=== PATIENT | female | born 1970 | race Caucasian/White ===

== ENCOUNTER 2020-05-02 07:54 | Day surgery (SDC) | payer OTHER ==
[2020-04-29 09:10] LABS: BASOPHILS # (AUTO) 0.02 x10^3/uL (0-0.1); BASOPHILS % (AUTO) 0 % (0-1); EOSINOPHILS # (AUTO) 0.25 x10^3/uL (0-0.4); EOSINOPHILS % (AUTO) 4 % (1-7); LYMPHOCYTES # (AUTO) 1.13 x10^3/uL (1-3.4); LYMPHOCYTES % (AUTO) 16 % (22-44); MD NO; MEAN CORPUSCULAR HEMOGLOBIN 24.9 pg (27.0-34.8); MONOCYTES # (AUTO) 0.56 x10^3/uL (0.2-0.8); MONOCYTES % (AUTO) 8 % (2-9); NEUTROPHILS # (AUTO) 4.99 x10^3/uL (1.8-6.8); NEUTROPHILS % (AUTO) 72 % (42-75); PLATELET COUNT 273 x10^3/uL (130-400); RED BLOOD COUNT 3.67 x10^6/uL (3.82-5.3); RED CELL DISTRIBUTION WIDTH 15.2 % (9.6-15.2)
[2020-04-29 09:18] LABS: ALANINE AMINOTRANSFERASE 18 U/L (12-78); ALBUMIN 3.4 g/dL (3.4-5.0); ANION GAP 6 mmol/L (5-15); CALCIUM 8.5 mg/dL (8.5-10.1); CHLORIDE 109 mmol/L (98-107); CREATININE 0.88 mg/dL (0.55-1.02)
[2020-04-29 09:22] LABS: ALKALINE PHOSPHATASE 62 U/L (45-117); BILIRUBIN,TOTAL 0.2 mg/dL (0.2-1.0); TOTAL PROTEIN 7.6 g/dL (6.4-8.2)
[2020-04-29 09:56] LABS: MICROSCOPIC NOT IND
[~2020-05-02] VITALS: Ht 167.6 cm; Wt 111.8 kg
[~2020-05-02 07:54] MED LIST: CHOL10003 PO; MULT-124 PO; [UNRECOGNIZED DRUG - OTHER] PO
[2020-05-02] MEDS ORDERED: MANNITOL PMX 20% 500 ML ONE (07:55)
[2020-05-02] MEDS ORDERED: EPINEPHRINE 1 MG/ML, 1ML ONE (07:55)
[2020-05-02] MEDS ORDERED: INDIGO CARMINE 0.8%, 5ML ONE (07:55)
[2020-05-02] MEDS ORDERED: BUPIVACAINE/PF 0.25% ONE (07:55)
[2020-05-02] MEDS ORDERED: LACTATED RINGERS 1,000 ML IV SCH (08:20)
[2020-05-02] MEDS ORDERED: DIAZEPAM 5 MG TABLET PO ONE (08:30)
[2020-05-02] MEDS ORDERED: CHLORHEXIDINE 15 ML UDC MM ONE (08:30)
[2020-05-02] MEDS ORDERED: SCOPOLAMINE 1MG PATCH TD ONE (08:30)
[2020-05-02] MEDS ORDERED: ACETAMINOPHEN 500 MG TABLET PO ONE (08:30)
[2020-05-02] MEDS ORDERED: MIDAZOLAM 1 MG/ML, 2ML ONE (09:33)
[2020-05-02] MEDS ORDERED: FENTANYL PF 250 MCG/5ML ONE (09:34)
[2020-05-02] MEDS ORDERED: CEFAZOLIN 1,000 MG ONE (10:11)
[2020-05-02] MEDS ORDERED: ROCURONIUM 10 MG/ML,10ML ONE (10:11)
[2020-05-02] MEDS ORDERED: GLYCOPYRROLATE 0.2MG/1ML, 5ML ONE (10:11)
[2020-05-02] MEDS ORDERED: NEOSTIGMINE 1 MG/ML, 10ML ONE (10:11)
[2020-05-02] MEDS ORDERED: ONDANSETRON 2MG/ML, 2ML ONE (10:11)
[2020-05-02] MEDS ORDERED: SUCCINYLCHOLINE 20 MG/ML, 10ML ONE (10:11)
[2020-05-02] MEDS ORDERED: PROPOFOL 10 MG/ML, 20ML ONE (10:11)
[2020-05-02] MEDS ORDERED: DEXAMETHASONE 4 MG/ML, 1ML ONE (10:11)
[2020-05-02] MEDS ORDERED: LIDOCAINE PF 2%, 5ML ONE (10:18)
[2020-05-02] MEDS ORDERED: METHOCARBAMOL 1,000 MG in DEXTROSE 5% 100 ML IV PRN (10:30)
[2020-05-02] MEDS ORDERED: HYDROmorphone 1 MG/ML, 1ML INJ IVPush PRN (10:30)
[2020-05-02] MEDS ORDERED: OXYcodone 5 MG/5 ML ORAL.SOL UDC PO PRN (10:30)
[2020-05-02] MEDS ORDERED: ONDANSETRON 2MG/ML, 2ML IVPush PRN (10:30)
[2020-05-02] MEDS ORDERED: PROMETHAZINE 25 MG SUPP PR PRN (10:30)
[2020-05-02] MEDS ORDERED: PROMETHAZINE 25 MG/ML, 1ML IVPush PRN (10:30)
[2020-05-02] MEDS ORDERED: FENTANYL PF 100 MCG/2ML ONE ×2 (11:42→12:36)
[2020-05-02] MEDS: FENTANYL PF 100 MCG/2ML IV PRN ×2 (12:37→12:50)
[2020-05-02] MEDS ORDERED: HYDROmorphone 1 MG/ML, 1ML INJ ONE (12:42)
[2020-05-02] MEDS ORDERED: SUGAMMADEX 200 MG/2 ML IVPush ONE (12:42)
[2020-05-02] MEDS ORDERED: OXYcodone 5 MG/5 ML ORAL.SOL UDC ONE (12:42)
== END 2020-05-02 16:30 | disposition home or self-care (01) ==
LOC: OUT 07:54
PROVIDERS: ATTEND Obstetrics & Gynecology Gynecology
DX: N93.9 Abnormal uterine and vaginal bleeding, unspecified (principal); Z20.828 Contact with and (suspected) exposure to other viral communicable diseases; D25.9 Leiomyoma of uterus, unspecified; N80.0 Endometriosis of uterus; N80.3 Endometriosis of pelvic peritoneum; N83.01 Follicular cyst of right ovary; N73.6 Female pelvic peritoneal adhesions (postinfective); R10.2 Pelvic and perineal pain; D50.0 Iron deficiency anemia secondary to blood loss (chronic); Z79.899 Other long term (current) drug therapy; Z80.3 Family history of malignant neoplasm of breast; Z83.3 Family history of diabetes mellitus; Z82.49 Family history of ischemic heart disease and other diseases of the circulatory system
CPT/HCPCS: 36415; 58573; 80053; 81003; 84702; 85025; 86850; 86900; 87635; 88307; J0171; J0330; J0690; J1100; J2250; J2405; J2704; J2710; J3010; J3490; J7120; S2900